=== PATIENT | male | born 1990 | race African-American/Black ===

== ENCOUNTER 2021-10-12 20:40 | Emergency (ER) | payer MEDICAID ==
[~2021-10-12] VITALS: Ht 185.4 cm; Wt 96.0 kg
[2021-10-12] MEDS ORDERED: DIPHENHYDRAMINE 25MG CAPSULE PO ONE (22:30)
[2021-10-12] MEDS ORDERED: PREDNISONE 20MG TABLET PO ONE (22:30)
[2021-10-12] MEDS ORDERED: FAMOTIDINE 20MG TABLET PO ONE (22:30)
[2021-10-13] MEDS ORDERED: P20 MT (00:37)
[2021-10-13] MEDS ORDERED: FAMO-135 MT (00:37)
[2021-10-13] MEDS ORDERED: EPIN0.3P3 IM (00:37)
[2021-10-13 01:50] VITALS: BP 118/69
== END 2021-10-13 01:52 | disposition home or self-care (01) ==
LOC: ER 20:40
DX: T78.1XXA Other adverse food reactions, not elsewhere classified, initial encounter (principal); R20.2 Paresthesia of skin; L29.9 Pruritus, unspecified; X58.XXXA Exposure to other specified factors, initial encounter; Z91.013 Allergy to seafood
CPT/HCPCS: 99284; J7512; Q0163

== ENCOUNTER 2021-11-27 22:05 | Emergency (ER) | payer MEDICAID ==
[~2021-11-27] VITALS: Ht 185.4 cm; Wt 91.0 kg
[~2021-11-27 22:05] MED LIST: EPIN0.3P3 IM; FAMO-135 MT; P20 MT
[2021-11-28 00:29] LABS: CLARITY URINE CLEAR (CLEAR); COLOR URINE YELLOW (YELLOW); KETONES URINE NEGATIVE (NEGATIVE); LEUKOCYTE ESTERASE URINE NEGATIVE (NEGATIVE); NITRITE URINE NEGATIVE (NEGATIVE); OCCULT BLOOD URINE NEGATIVE (NEGATIVE); PH URINE 8.5 (4.5-8.0); PROTEIN URINE NEGATIVE (NEGATIVE); SPECIFIC GRAVITY URINE 1.011 (1.005-1.030)
[2021-11-28 00:48] LABS: EOSINOPHILS % 0.9 % (0.0-5.0); HEMATOCRIT. 43.8 % (42.0-52.0); LYMPHOCYTES % 35.1 % (20.0-50.0); MEAN CORPUSCULAR HEMOGLOBIN 31.1 pg (28.0-32.0); MEAN PLATELET VOLUME 9.7 fl (7.4-10.4); MONOCYTES % 7.4 % (2.0-8.0); NEUTROPHILS % 55.6 % (40.0-76.0); PLATELET 160 x1000/uL (130-400); RED BLOOD CELL COUNT 4.82 mill/uL (4.7-6.1); RED CELL DISTRIBUTION WIDTH 13.6 % (11.6-14.6)
[2021-11-28 00:51] LABS: *AMPHETAMINES SCREEN URINE NEGATIVE (NEGATIVE); *BARBITURATES SCREEN URINE NEGATIVE (NEGATIVE); *BENZODIAZEPINES SCREEN URINE NEGATIVE (NEGATIVE); *COCAINE SCREEN URINE NEGATIVE (NEGATIVE)
[2021-11-28 00:52] LABS: CANNABINOID URINE SCREEN NEGATIVE (NEGATIVE); METHADONE URINE SCREEN NEGATIVE (NEGATIVE); OPIATES URINE SCREEN NEGATIVE (NEGATIVE); PHENCYCLIDINE URINE SCREEN NEGATIVE (NEGATIVE)
[2021-11-28 00:59] LABS: CHLORIDE 103 mEq/L (98-107)
[2021-11-28 01:25] VITALS: BP 120/70
== END 2021-11-28 01:37 | disposition home or self-care (01) ==
LOC: ER 22:05
DX: R06.02 Shortness of breath (principal); R53.1 Weakness; F32.A Depression, unspecified; J45.909 Unspecified asthma, uncomplicated; Z79.899 Other long term (current) drug therapy
CPT/HCPCS: 36415; 71045; 80053; 80305; 81003; 85025; 93005; 99285

== ENCOUNTER 2022-05-31 23:29 | Emergency (ER) | payer MEDICAID ==
[~2022-05-31] VITALS: Ht 185.4 cm; Wt 91.1 kg
[2022-05-31 23:32] VITALS: BP 150/85
[2022-06-01] MEDS ORDERED: ALBUTEROL (0.083%) 2.5MG/3ML NEB HHN STA (02:55)
[2022-06-01] MEDS ORDERED: PREDNISONE 20MG TABLET PO STA (02:55)
[2022-06-01] MEDS ORDERED: IPRATROPIUM BROMIDE (0.02%) 0.5MG/2.5ML NEB HHN STA (02:55)
[2022-06-01] MEDS ORDERED: P20 MT (04:16)
== END 2022-06-01 04:27 | disposition home or self-care (01) ==
LOC: ER 23:45
DX: J45.901 Unspecified asthma with (acute) exacerbation (principal); Z79.51 Long term (current) use of inhaled steroids; R03.0 Elevated blood-pressure reading, without diagnosis of hypertension; Z20.822 Contact with and (suspected) exposure to COVID-19
CPT/HCPCS: 71045; 87426; 94640; 99284; C9803; J7512; Z7610

== ENCOUNTER 2022-06-28 17:58 | Emergency (ER) | payer MEDICAID ==
[~2022-06-28] VITALS: Ht 185.4 cm; Wt 91.0 kg
[2022-06-28] MEDS ORDERED: IBUP-2029 MT (23:33)
[2022-06-28] MEDS ORDERED: LORA-985 MT (23:33)
[2022-06-29 00:10] VITALS: BP 125/65
== END 2022-06-29 00:15 | disposition home or self-care (01) ==
LOC: ER 17:58
DX: R51.9 Headache, unspecified (principal); R06.7 Sneezing; R05.9 Cough, unspecified
CPT/HCPCS: 99284

== ENCOUNTER 2022-11-24 18:15 | Emergency (ER) | payer MEDICAID ==
[~2022-11-24] VITALS: Ht 185.4 cm; Wt 94.0 kg
[~2022-11-24 18:15] MED LIST changes: +IBUP-2029 MT; +LORA-985 MT
[2022-11-24 18:17] VITALS: BP 146/76
[2022-11-24 20:49] LABS: CLARITY URINE CLEAR (CLEAR); COLOR URINE YELLOW (YELLOW); KETONES URINE NEGATIVE (NEGATIVE); LEUKOCYTE ESTERASE URINE TRACE (NEGATIVE); NITRITE URINE NEGATIVE (NEGATIVE); OCCULT BLOOD URINE NEGATIVE (NEGATIVE); PROTEIN URINE NEGATIVE (NEGATIVE); SPECIFIC GRAVITY URINE 1.016 (1.005-1.030)
[2022-11-24] MEDS ORDERED: METRONIDAZOLE 500MG TABLET PO NR (21:37)
[2022-11-24] MEDS ORDERED: AZITHROMYCIN 500 MG TABLET PO ONE (21:45)
[2022-11-28 09:06] LABS: NEISSERIA GONORRHOEAE NAA Negative (Negative)
== END 2022-11-24 22:31 | disposition home or self-care (01) ==
LOC: ER 18:24
DX: N34.2 Other urethritis (principal); J45.909 Unspecified asthma, uncomplicated; Z79.899 Other long term (current) drug therapy
CPT/HCPCS: 81003; 86592; 87491; 87591; 99283

== ENCOUNTER 2022-11-29 12:08 | Emergency (ER) | payer MEDICAID ==
[~2022-11-29] VITALS: Ht 185.4 cm; Wt 85.0 kg
[2022-11-29 12:15] VITALS: BP 117/82
[2022-11-29 14:17] LABS: CLARITY URINE CLEAR (CLEAR); COLOR URINE YELLOW (YELLOW); KETONES URINE NEGATIVE (NEGATIVE); LEUKOCYTE ESTERASE URINE 1+ (NEGATIVE); NITRITE URINE NEGATIVE (NEGATIVE); OCCULT BLOOD URINE NEGATIVE (NEGATIVE); PROTEIN URINE NEGATIVE (NEGATIVE); SPECIFIC GRAVITY URINE 1.023 (1.005-1.030)
[2022-11-29] MEDS ORDERED: SULF1TAB48 MT (14:52)
[2022-11-29] MEDS ORDERED: METR-167 PO (14:52)
== END 2022-11-29 17:36 | disposition home or self-care (01) ==
LOC: ER 12:08
DX: N34.2 Other urethritis (principal)
CPT/HCPCS: 81003; 99283